=== PATIENT | female | born 1940 | race Caucasian/White ===

== ENCOUNTER 2023-04-01 12:29 | Day surgery (SDC) | payer MEDICARE, MEDICAID, SELFPAY ==
--- NOTE | 2023-04-01 11:57 | ANES.PREOP_ITS ---
General Info Date of Service Date Performed: 04/01/23 Height: 5 ft 2 in Weight: 72.575 kg Body Mass Index (BMI): 29.2 Surgical Procedure: Operation Date: 04/01/23 16:40 Proposed Procedure Side Surgeon p Cataract Extraction with IOL Implant Left Tristan King MD Meds Allergies and Home Medications Allergies Allergy/AdvReac Type Severity Reaction Status Date / Time Yeast Allergy Unknown unknown Unverified 03/30/23 14:30 Phenothiazines Allergy dystonia,lost Unverified 03/31/23 12:30 control of tongue [place] Inhibitors AdvReac Intermediate Cough Unverified 03/30/23 14:30 morphine AdvReac Intermediate Vomiting Unverified 03/30/23 14:30 Home Medication Medication Instructions Recorded albuterol sulfate 90 mcg/actuation 1 puff inhalation QID PRN 03/30/23 aerosol inhaler (Ventolin HFA) allopurinol 100 mg tablet 100 mg PO DIRECTED 03/30/23 bisoprolol 5 1 tab PO DAILY 03/30/23 mg-hydrochlorothiazide 6.25 mg tablet [id number]-briglmbzy-jgro tablet 1 tab PO DAILY 03/30/23 cholecalciferol (vitamin D3) 25 25 mcg PO DAILY 03/30/23 mcg (1,000 unit) tablet (Vitamin D3) cyclosporine 0.05 % eye drops in a 1 drp ophthalmic (eye) BID 03/30/23 dropperette (Restasis) dulaglutide 1.5 mg/0.5 mL 1.5 mg subcut DIRECTED 03/30/23 subcutaneous pen injector (Trulicity) gabapentin 100 mg capsule 100 mg PO TID 03/30/23 ipratropium bromide 42 mcg (0.06 2 spray intranasal QID 03/30/23 %) nasal spray levothyroxine 75 mcg tablet 75 mcg PO DIRECTED 03/30/23 melatonin 3 mg tablet 3 mg PO HS 03/30/23 mirtazapine 15 mg tablet 15 mg PO HS 03/30/23 omega-3 fatty acids 1 cap PO DAILY 03/30/23 risperidone 0.5 mg tablet 0.5 mg PO DIRECTED 03/30/23 simvastatin 40 mg tablet 40 mg PO DAILY 03/30/23 venlafaxine 75 mg capsule,extended 75 mg PO DAILY 03/30/23 release 24 hr vitamin B12 1,000 mcg-folic acid 1 tab sublingual DIRECTED 03/30/23 400 mcg sublingual tablet Current Visit Medications: Current Medications Generic Name Dose Route Start Last Admin Trade Name Freq PRN Reason Stop Dose Admin Acetaminophen 1,000 mg 04/01/23 06:00 Acetaminophen 500 Mg Tab PO 05/01/23 05:59 Q4H PRN PRN Balanced Salt Solution 500 ml 04/01/23 06:00 Balanced Salt Soln.-Plus 500 Ml Bag OP 05/01/23 05:59 DIRECTED [facility] Miscellaneous Medication 0 ml 04/01/23 06:00 Prednisolone 1%, Moxifloxacin 0.5%, Nepafenac 0.1% 5ml Btl OS 05/01/23 05:59 DIRECTED JAYMIE Miscellaneous Medication 0 ml 04/01/23 06:00 Tropicam./Phenyleph. (1/2.5%) 5 Ml Btl OS 05/01/23 05:59 DIRECTED JAYMIE Tetracaine HCl 0 ml 04/01/23 06:00 Tetracaine 0.5% 4 Ml Btl OS 05/01/23 05:59 DIRECTED JAYMIE PFSH Active Problems Active Problems: Problem Status Onset Code Cortical age-related cataract, left eye H25.012 Nuclear age-related cataract, left eye H25.12 Mild persistent asthma without complication J45.30 Nasal polyp J33.9 Chronic ethmoidal sinusitis J32.2 Medical History Medical History (Updated 03/31/23 @ 19:22 by Tristan King MD) Adjustment disorder Allergic rhinitis Asthma Atopic dermatitis Benign essential hypertension Benign neoplasm of meninges Bilateral carpal tunnel syndrome BPPV (benign paroxysmal positional vertigo) Cervical radiculopathy Chest pain pt. 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 She was hospitalized beginning of January 2023...reports of outside voices have quieted although not not gone entirely Recurrent major depression Spondylosis without myelopathy Surgical History Surgical History (Reviewed 03/30/23 @ 14:20 by Saúl Pedersen H/O ovarian cystectomy History of breast biopsy History of carpal tunnel release History of partial colectomy History of repair of rectocele History of sinus surgery History of tonsillectomy and adenoidectomy Hx of dilation and curettage Hx of hysterectomy S/P epidural steroid injection Tobacco Smoking/Tobacco Use Status: Never Alcohol Alcohol Intake: never Substance Use Substance use: Never Substance use type: does not use Vital Signs and Lab Results Vital Signs Most Recent Vital Signs in EMR: Temp Pulse Resp BP Pulse Ox 36.3 C L 69 16 147/59 H 98 04/01/23 12:49 04/01/23 12:49 04/01/23 12:49 04/01/23 12:49 04/01/23 12:49 Lab Results Blood Type / Crossmatch: No Data to Display Complete Blood Count: No Data to Display Complete Metabolic Panel: No Data to Display Liver Function Panel: No Data to Display Coagulation Panel: No Data to Display Cardiac Panel: No Data to Display Arterial Blood Gas: No Data to Display Venous Blood Gas: No Data to Display Pancreas Panel: No Data to Display Thyroid Panel: No Data to Display Infectious Disease: No Data to Display Blood Cultures: No Data to Display Toxicology Panel: No Data to Display Anesthesia Assessment and Plan Anesthesia History Personal History: No History of Anesthesia Complications Family History: No Family History of Anesthesia Complications Exercise Tolerance Exercise Tolerance: Metabolic Equivalents>4 Cardiac & Pulmonary Exam Cardiac Exam: Normal S1/S2 Heart Sounds Pulmonary Exam: Clear Bilateral Breath Sounds Implantable Cardiac Device Does patient have a Pacemaker or an ICD?: No Airway Exam Known Difficult Airway: No Mallampati Class: 4 Mouth Opening: Narrow (< 3cm) Thyromental Distance: Greater than 3 cm Neck Range of Motion: Limited ROM Neck Circumference: Normal Teeth Condition: Normal Dentition ASA Classification ASA Score: ASA 2 Emergency Case?: No NPO Status NPO Status: NPO Clears >2 hours, Solids >8 hours Anesthesia Plan Resuscitation Status: Full Code Anesthesia Technique: MAC Anesthesia Airway Planned: Natural Airway Monitors Used: Standard Monitors Preoperative Comments:: 82 yo female for cataract removal. would like MKO. Sig PMHx: vertigo, depression/fibromyalgia/anxiety, DM (dulaglutide), asthma,
[2023-04-01 12:49] VITALS: BP 147/59; PULSE 69; RESP 16; TEMP 36.3; O2SAT 98
[2023-04-01] MEDS: Tropicam./Phenyleph. (1/2.5%) 5 ML BTL OS ×3 (12:57→13:13)
[2023-04-01 12:58] VITALS: BMI 29.2
[2023-04-01] MEDS: Tetracaine 0.5% 4 ML BTL OS (13:49)
[2023-04-01] MEDS: Balanced Salt Soln.-PLUS 500 ML BAG OP (13:54)
[2023-04-01] MEDS: Trypan Blue 0.06% 0.5 ML SYR (14:00)
[2023-04-01] MEDS: Duovisc Viscoelastic System EACH 1 EACH (14:00)
[2023-04-01] MEDS: Lidocaine 1% Pres-Free 5 ML VIAL (14:01)
[2023-04-01] MEDS: Phenylephrine/Lidocaine (15/10) MG/ML 1 ML VIAL (14:01)
[2023-04-01] MEDS: Povidone-Iodine Ophth 30 ML BTL (14:01)
[2023-04-01 14:21] VITALS: BP 129/50; PULSE 73; RESP 16; TEMP 36.3; O2SAT 97
--- NOTE | 2023-04-01 14:23 | PDOC.DSDIS_ITS ---
Date of service: 04/01/23 Time of Service: 14:24 Discharge Plan Disposition Patient Disposition: Home Discharge Details Attending Provider: Tristan King Primary Care Provider: Grisel Lazo Home Meds and New Rx's Prescriptions: No Action venlafaxine 75 mg capsule,extended release 24hr 75 mg PO DAILY Patient Comments: TAKE ONE CAPSULE BY MOUTH EVERY DAY bisoprolol-hydrochlorothiazide 5-6.25 mg tablet 1 tab PO DAILY Patient Comments: TAKE ONE TABLET BY MOUTH EVERY DAY melatonin 3 mg Tablet 3 mg PO HS allopurinol 100 mg tablet 100 mg PO DIRECTED Patient Comments: TAKE ONE TABLET BY MOUTH EVERY DAY IN THE MORNING simvastatin 40 mg tablet 40 mg PO DAILY Patient Comments: TAKE ONE TABLET BY MOUTH EVERY NIGHT AT BEDTIME levothyroxine 75 mcg tablet 75 mcg PO DIRECTED sprfxzf-soqqfasqh-wrzy Tablet 1 tab PO DAILY mirtazapine 15 mg tablet 15 mg PO HS Patient Comments: TAKE ONE TABLET BY MOUTH AT BEDTIME gabapentin 100 mg capsule 100 mg PO TID Patient Comments: TAKE ONE CAPSULE BY MOUTH THREE TIMES A DAY albuterol sulfate [Ventolin HFA] 90 mcg/actuation Hfa Aerosol Inhaler 1 puff INHALATION QID PRN ipratropium bromide 42 mcg (0.06 %) spray,non-aerosol 2 spray INTRANASAL QID Patient Comments: SPRAY TWO SPRAYS IN ONE NOSTRIL FOUR TIMES A DAY risperidone 0.5 mg tablet 0.5 mg PO DIRECTED cyclosporine [Restasis] 0.05 % Dropperette 1 drp ophthalmic (eye) BID [place] 3 Capsule 1 cap PO DAILY cholecalciferol (vitamin D3) [Vitamin D3] 25 mcg (1,000 unit) Tablet 25 mcg PO DAILY vitamin F96-yqkom acid 1,000-400 mcg Tablet, Sublingual 1 tab SUBLINGUAL DIRECTED Trulicity 1.5 mg/0.5 mL pen injector 1.5 mg SUBCUT DIRECTED Patient Comments: ADMINISTER 1 & 1/2 MG INTO THE SKIN EVERY WEEK Discharge Instructions Stand Alone Forms: Post-op Topical Cataract, Press Ganey (DSU) Discharge Orders Discharge Orders: Discharge Order (Routine); Ordered 04/01/23 Ordered By: Tristan King DS: Diagnosis Discharge Diagnosis (1) Cortical age-related cataract, left eye: Status: Resolved (2) Nuclear age-related cataract, left eye: Status: Resolved
--- NOTE | 2023-04-01 14:24 | ROE_ITS ---
Date of service: 04/01/23 Time of Service: 14:24 Operative Note Operative Note DATE OF PROCEDURE: 04/01/23 PRE-OP DIAGNOSIS: Nuclear/cortical cataract, left eye POST-OP DIAGNOSIS: same PROCEDURE: Cataract extraction using phacoemulsification with intraocular lens implant, left eye SURGEON: Tristan King ANESTHESIA TYPE: Local By Surgeon and MAC Refer to Anesthesia Record PATHOLOGY: none sent COMPLICATIONS: None Patient was transported to: same day Patient's condition: stable Implants: Addy and Addy Tecnis Eyhance DIB00 Indications: Progressive decreased vision due to cataract, left eye Procedure Description: CATARACT SURGERY OPERATIVE REPORT PREOPERATIVE DIAGNOSIS: 1. Nuclear/cortical cataract, left eye POSTOPERATIVE DIAGNOSIS: Same OPERATION: 1. Cataract extraction using phacoemulsification with posterior chamber intraocular lens implant, left eye. IOL: IOL Weigher Operator/Model: Addy & Addy Tecnis Eyhance DIB00 IOL Power: + 21.0 diopters IOL Serial Number: [id number] Optic Diameter: 6.0 mm Haptic/Overall Diameter: 13.0 mm PHACO INFO: LukeJacked Vision System with OZil and Active Fluidics Cumulative Dispersed Energy (CDE): 8.18 seconds SURGEON: Tristan King MD, MACHO ANESTHESIA: Monitored A [facility] (MAC), with local sub-tenon's anesthetic infiltration COMPLICATIONS: None SPECIMENS: None INDICATIONS FOR PROCEDURE: The patient is an 82-year-old lady with history of diminished visual acuity in her left eye secondary to the development of significant nuclear/cortical cataract. She is significantly symptomatic that she desires cataract surgery and attempt to improve and maximize her vision. See office notes for detailed information. PROCEDURE: The correct surgical eye was identified and marked as the left eye and the pupil was dilated in the preoperative area using mydriatics and cycloplegics. The dilated pupil size was 5.0 mm mm. Oral sedation was administered in the form of one half of an Imprimis MKO Melt (midazolam 3mg/ketamine 25mg/ondansetron 2mg). The patient was brought to the operating room where cardiopulmonary monitoring was instituted and surgical time-out was performed, confirming the correct operative eye and IOL power. Topical anesthesia was administered and ophthalmic povidone-iodine 5% was instilled into the conjunctival fornices. The clarisa-ocular area was prepped with Betadine 10% solution and draped in the usual sterile fashion for intraocular surgery, including an aperture drape. A Tegaderm transparent film dressing was cut in half and used to cover the lashes and lid margins. Care was taken to s equester the lashes and lid margins under the Tegaderm dressing. A lid speculum was placed between the lids of the operative eye and the Luke LuxOR Revalia operating microscope was maneuvered into position. Bettina scissors were then used to make a conjunctival buttonhole approximately 6mm posterior to the limbus in the inferonasal quadrant. Blunt dissection was carried out to expose bare sclera, and a blunt-tipped sub-tenon?s anesthesia cannula was introduced and passed posteriorly along the globe where non- preserved plain lidocaine was injected into posterior sub-Tenon?s space. A side port knife was used to make a paracentesis port. VisionBlue was injected into the anterior chamber and allowed to sit for 20 seconds. Intraocular phenylephrine/lidocaine was injected into the anterior chamber.. The anterior chamber was filled with viscoelastic. A moderate amount of pseudoexfoliation material was visible on the anterior lens capsule after additional dilation with viscoelastic. Capsule is noted to be quite thin. Only mild zonular laxity was noted. A keratome knife was used to construct a 2- plane near-clear corneal tunnel extending 2.0mm into clear cornea. A flap was raised on the anterior capsule and capsulorhexis forceps were used to complete a continuous curvilinear capsulorhexis of 5.0 mm. Balanced salt solution was then used to perform cortical cleaving hydrod issection and nuclear hydrodelineation until the lens could be freely rotated within the capsular bag. The lens nucleus was then disassembled and removed within the capsular bag and iris plane using phacoemulsification. Residual cortical material was removed using the irrigation/aspiration handpiece. The posterior capsule was carefully polished to remove as much residual lens epithelial cells as safely possible. The capsular bag was then inflated and the anterior chamber deepened with viscoelastic. The lens implant described above was inserted into the capsular bag using the Addy and Addy Simplicity pre- loaded injector. A Kuglen hook was used to dial the IOL into position. Residual viscoelastic was then removed first from posterior to the IOL, then from the anterior chamber using the I/A handpiece. The lens implant was noted to center nicely within the capsular bag. The incisions were stromally hydrated, and the anterior chamber was reformed using BSS. Then 0.5cc of moxifloxacin 1.0mg/ml were injected into the capsular bag and anterior chamber. The incisions were checked with a Weck spear and found to be secure. Several drops of ophthalmic povidone-iodine 5% were then applied to the eye followed by two drops of Imprimis combination prednisolone/moxifloxacin/nepafenac solution. The drapes were removed and a clear plastic protective eye shield was placed over the eye. The patient was then returned to Same Day Surgery in stable condition.
--- NOTE | 2023-04-01 14:46 | W.ANESPOSTOP ---
Postoperative Evaluation Date, Time and Location Date Performed: 04/01/23 Time Performed: 14:46 Patient Location: Day Surgery Unit Vital Signs Most Recent Imported Vital Signs: Most Recent Vital Signs Temp Pulse Resp BP Pulse Ox 36.3 C L 73 16 129/50 L 97 04/01/23 14:21 04/01/23 14:21 04/01/23 14:21 04/01/23 14:21 04/01/23 14:21 Pain Score Most Recent Pain Score: Most Recent Pain Score Pain Level 0 04/01/23 14:21 Assessment Mental Status: Awake (Alert & Oriented to Patient Baseline) Airway and Respiratory Function: Patent airway with normal (patient baseline) respiratory exam Cardiovascular Function: Hemodynamically Stable Hydration Status: Adequately Hydrated Nausea & Vomiting: No Nausea or Vomiting Pain: Pt. Denies Any Pain Peripheral Nerve Block: Other (Local by Dr. King)
[2023-04-01 14:47] VITALS: BP 117/72; PULSE 77; RESP 16; TEMP 36.8; O2SAT 93
== END 2023-04-01 15:08 | disposition home or self-care (01) ==
PROVIDERS: PCP Internal Medicine; Visit Provider Ophthalmology
PROC: (CPT 66984; principal; 2023-04-01 16:30)
DX: H25.012 Cortical age-related cataract, left eye (principal); H25.12 Age-related nuclear cataract, left eye
CPT/HCPCS: 66984; V2632

== ENCOUNTER 2023-04-15 12:28 | Day surgery (SDC) | payer MEDICARE, MEDICAID, SELFPAY ==
[2023-04-15] MEDS: Tropicam./Phenyleph. (1/2.5%) 5 ML BTL OD (12:48)
[2023-04-15 12:56] VITALS: BP 140/73; PULSE 74; RESP 16; TEMP 36.4; O2SAT 99
--- NOTE | 2023-04-15 13:04 | ANES.PREOP_ITS ---
General Info Height: 5 ft 2 in Weight: 72.9 kg Body Mass Index (BMI): 29.4 Surgical Procedure: Operation Date: 04/15/23 16:25 Proposed Procedure Side Surgeon p Cataract Extraction with IOL Implant Right Tristan King MD Meds Allergies and Home Medications Allergies Allergy/AdvReac Type Severity Reaction Status Date / Time Yeast Allergy Unknown unknown Unverified 04/15/23 13:00 Phenothiazines Allergy dystonia,lost Unverified 04/15/23 13:00 control of tongue [place] Inhibitors AdvReac Intermediate Cough Unverified 04/15/23 13:00 morphine AdvReac Intermediate Vomiting Unverified 04/15/23 13:00 Home Medication Medication Instructions Recorded albuterol sulfate 90 mcg/actuation 1 puff inhalation QID PRN 03/30/23 aerosol inhaler (Ventolin HFA) allopurinol 100 mg tablet 100 mg PO DIRECTED 03/30/23 bisoprolol 5 1 tab PO DAILY 03/30/23 mg-hydrochlorothiazide 6.25 mg tablet brtpuas-yoilnwynr-ppqd tablet 1 tab PO DAILY 03/30/23 cholecalciferol (vitamin D3) 25 25 mcg PO DAILY 03/30/23 mcg (1,000 unit) tablet (Vitamin D3) cyclosporine 0.05 % eye drops in a 1 drp ophthalmic (eye) BID 03/30/23 dropperette (Restasis) dulaglutide 1.5 mg/0.5 mL 1.5 mg subcut DIRECTED 03/30/23 subcutaneous pen injector (Trulicity) gabapentin 100 mg capsule 100 mg PO TID 03/30/23 ipratropium bromide 42 mcg (0.06 2 spray intranasal QID 03/30/23 %) nasal spray levothyroxine 75 mcg tablet 75 mcg PO DIRECTED 03/30/23 melatonin 3 mg tablet 3 mg PO HS 03/30/23 mirtazapine 15 mg tablet 15 mg PO HS 03/30/23 omega-3 fatty acids 1 cap PO DAILY 03/30/23 risperidone 0.5 mg tablet 0.5 mg PO DIRECTED 03/30/23 simvastatin 40 mg tablet 40 mg PO DAILY 03/30/23 venlafaxine 75 mg capsule,extended 75 mg PO DAILY 03/30/23 release 24 hr vitamin B12 1,000 mcg-folic acid 1 tab sublingual DIRECTED 03/30/23 400 mcg sublingual tablet Current Visit Medications: Current Medications Generic Name Dose Route Start Last Admin Trade Name Freq PRN Reason Stop Dose Admin Acetaminophen 1,000 mg 04/15/23 06:00 Acetaminophen 500 Mg Tab PO 05/15/23 05:59 Q4H PRN PRN Balanced Salt Solution 500 ml 04/15/23 06:00 Balanced Salt Soln.-Plus 500 Ml Bag OP 05/15/23 05:59 DIRECTED [facility]E Miscellaneous Medication 0 ml 04/15/23 06:00 Prednisolone 1%, Moxifloxacin 0.5%, Nepafenac 0.1% 5ml Btl OD 05/15/23 05:59 DIRECTED [facility] Miscellaneous Medication 0 ml 04/15/23 06:00 04/15/23 12:48 Tropicam./Phenyleph. (1/2.5%) 5 Ml Btl OD 05/15/23 05:59 1 drp DIRECTED JAYMIE Administration Tetracaine HCl 0 ml 04/15/23 06:00 Tetracaine 0.5% 4 Ml Btl OD 05/15/23 05:59 DIRECTED [facility] PFSH Active Problems Active Problems: Problem Status Onset Code Cortical age-related cataract, right eye H25.011 Nuclear age-related cataract, right eye H25.11 Cortical age-related cataract, left eye H25.012 Nuclear age-related cataract, left eye H25.12 Mild persistent asthma without complication J45.30 Nasal polyp J33.9 Chronic ethmoidal sinusitis J32.2 Medical History Medical History Adjustment disorder Allergic rhinitis Asthma Atopic dermatitis Benign essential hypertension Benign neoplasm of meninges Bilateral carpal tunnel syndrome BPPV (benign paroxysmal positional vertigo) Cervical radiculopathy Chest pain pt. 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 She was hospi talized beginning of January 2023...reports of outside voices have quieted although not not gone entirely Recurrent major depression Spondylosis without myelopathy Medical History Comments:: Per pt. daughter stated last Cat surgery here her daughter stated she felt a twinge of pain during it wanted to see mf anything different could be done to address that. Surgical History Surgical History H/O ovarian cystectomy History of breast biopsy History of carpal tunnel release History of partial colectomy History of repair of rectocele History of sinus surgery History of tonsillectomy and adenoidectomy Hx of dilation and curettage Hx of hysterectomy S/P epidural steroid injection Tobacco Smoking/Tobacco Use Status: Never Alcohol Alcohol Intake: never Substance Use Substance use: Never Substance use type: does not use Vital Signs and Lab Results Vital Signs Most Recent Vital Signs in EMR: Most Recent Vital Signs Temp Pulse Resp BP Pulse Ox 36.4 C L 74 16 140/73 99 04/15/23 12:56 04/15/23 12:56 04/15/23 12:56 04/15/23 12:56 04/15/23 12:56 Point of Care Results Point of Care Results: Finger Stick Blood Glucose 127 04/15/23 12:38 Lab Results Blood Type / Crossmatch: No Data to Display Complete Blood Count: No Data to Display Complete Metabolic Panel: No Data to Display Liver Function Panel: No Data to Display Coagulation Panel: No Data to Display Cardiac Panel: No Data to Display Arterial Blood Gas: No Data to Display Venous Blood Gas: No Data to Display Pancreas Panel: No Data to Display Thyroid Panel: No Data to Display Infectious Disease: 2 No Data to Display Blood Cultures: No Data to Display Toxicology Panel: No Data to Display Anesthesia Assessment and Plan Anesthesia History Personal History: No History of Anesthesia Complications Family History: No Family History of Anesthesia Complications Exercise Tolerance Exercise Tolerance: Metabolic Equivalents>4 Implantable Cardiac Device Does patient have a Pacemaker or an ICD?: No Airway Exam Known Difficult Airway: No Mallampati Class: 4 Mouth Opening: Narrow (< 3cm) Thyromental Distance: Greater than 3 cm Neck Range of Motion: Limited ROM Neck Circumference: Normal Teeth Condition: Normal Dentition Preoperative Comments:: 82 yo female for cataract removal. would like MKO. Sig PMHx: vertigo, depression/fibromyalgia/anxiety, DM (dulaglutide), asthma,
[2023-04-15] MEDS: Duovisc Viscoelastic System EACH 1 EACH (13:33)
[2023-04-15] MEDS: Balanced Salt Soln.-PLUS 500 ML BAG OP (13:34)
[2023-04-15] MEDS: Tetracaine 0.5% 4 ML BTL OD (13:35)
[2023-04-15] MEDS: Phenylephrine/Lidocaine (15/10) MG/ML 1 ML VIAL (13:36)
[2023-04-15] MEDS: Povidone-Iodine Ophth 30 ML BTL (13:36)
[2023-04-15] MEDS: Trypan Blue 0.06% 0.5 ML SYR (13:37)
--- NOTE | 2023-04-15 13:44 | ANES.PREOP_ITS ---
General Info Date of Service Date Performed: 04/15/23 Height: 5 ft 2 in Weight: 72.9 kg Body Mass Index (BMI): 29.4 Surgical Procedure: Operation Date: 04/15/23 16:25 Proposed Procedure Side Surgeon p Cataract Extraction with IOL Implant Right Tristan King MD Meds Allergies and Home Medications Allergies Allergy/AdvReac Type Severity Reaction Status Date / Time Yeast Allergy Unknown unknown Unverified 04/15/23 13:00 Phenothiazines Allergy dystonia,lost Unverified 04/15/23 13:00 control of tongue [place] Inhibitors AdvReac Intermediate Cough Unverified 04/15/23 13:00 morphine AdvReac Intermediate Vomiting Unverified 04/15/23 13:00 Home Medication Medication Instructions Recorded albuterol sulfate 90 mcg/actuation 1 puff inhalation QID PRN 03/30/23 aerosol inhaler (Ventolin HFA) allopurinol 100 mg tablet 100 mg PO DIRECTED 03/30/23 bisoprolol 5 1 tab PO DAILY 03/30/23 mg-hydrochlorothiazide 6.25 mg tablet [id number]-[id number]-kget tablet 1 tab PO DAILY 03/30/23 cholecalciferol (vitamin D3) 25 25 mcg PO DAILY 03/30/23 mcg (1,000 unit) tablet (Vitamin D3) cyclosporine 0.05 % eye drops in a 1 drp ophthalmic (eye) BID 03/30/23 dropperette (Restasis) dulaglutide 1.5 mg/0.5 mL 1.5 mg subcut DIRECTED 03/30/23 subcutaneous pen injector (Trulicity) gabapentin 100 mg capsule 100 mg PO TID 03/30/23 ipratropium bromide 42 mcg (0.06 2 spray intranasal QID 03/30/23 %) nasal spray levothyroxine 75 mcg tablet 75 mcg PO DIRECTED 03/30/23 melatonin 3 mg tablet 3 mg PO HS 03/30/23 mirtazapine 15 mg tablet 15 mg PO HS 03/30/23 omega-3 fatty acids 1 cap PO DAILY 03/30/23 risperidone 0.5 mg tablet 0.5 mg PO DIRECTED 03/30/23 simvastatin 40 mg tablet 40 mg PO DAILY 03/30/23 venlafaxine 75 mg capsule,extended 75 mg PO DAILY 03/30/23 release 24 hr vitamin B12 1,000 mcg-folic acid 1 tab sublingual DIRECTED 03/30/23 400 mcg sublingual tablet Current Visit Medications: Current Medications Generic Name Dose Route Start Last Admin Trade Name Freq PRN Reason Stop Dose Admin Acetaminophen 1,000 mg 04/15/23 06:00 Acetaminophen 500 Mg Tab PO 05/15/23 05:59 Q4H PRN PRN Balanced Salt Solution 500 ml 04/15/23 06:00 04/15/23 13:34 Balanced Salt Soln.-Plus 500 Ml Bag OP 05/15/23 05:59 500 ml DIRECTED JAYMIE Administration Miscellaneous Medication 0 ml 04/15/23 06:00 04/15/23 13:34 Prednisolone 1%, Moxifloxacin 0.5%, Nepafenac 0.1% 5ml Btl OD 05/15/23 05:59 2 drp DIRECTED JAYMIE Administration Miscellaneous Medication 0 ml 04/15/23 06:00 04/15/23 12:48 Tropicam./Phenyleph. (1/2.5%) 5 Ml Btl OD 05/15/23 05:59 1 drp DIRECTED JAYMIE Administration Tetracaine HCl 0 ml 04/15/23 06:00 04/15/23 13:35 Tetracaine 0.5% 4 Ml Btl OD 05/15/23 05:59 4 drp DIRECTED JAYMIE Administration PFSH Active Problems Active Problems: Problem Status Onset Code Cortical age-related cataract, right eye H25.011 Nuclear age-related cataract, right eye H25.11 Cortical age-related cataract, left eye H25.012 Nuclear age-related cataract, left eye H25.12 Mild persistent asthma without complication J45.30 Nasal polyp J33.9 Chronic ethmoidal sinusitis J32.2 Medical History Medical History Adjustment disorder Allergic rhinitis Asthma Atopic dermatitis Benign essential hypertension Benign neoplasm of meninges Bilateral carpal tunnel syndrome BPPV (benign paroxysmal positional vertigo) Cervical radiculopathy Chest pain pt. 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 She was hospit alized beginning of January 2023...reports of outside voices have quieted although not not gone entirely Recurrent major depression Spondylosis without myelopathy Medical History Comments:: Per pt. daughter stated last Cat surgery here her daughter stated she felt a twinge of pain during it wanted to see mf anything different could be done to address that. Surgical History Surgical History H/O ovarian cystectomy History of breast biopsy History of carpal tunnel release History of partial colectomy History of repair of rectocele History of sinus surgery History of tonsillectomy and adenoidectomy Hx of dilation and curettage Hx of hysterectomy S/P epidural steroid injection Tobacco Smoking/Tobacco Use Status: Never Alcohol Alcohol Intake: never Substance Use Substance use: Never Substance use type: does not use Vital Signs and Lab Results Vital Signs Most Recent Vital Signs in EMR: Most Recent Vital Signs Temp Pulse Resp BP Pulse Ox 36.4 C L 74 16 140/73 99 04/15/23 12:56 04/15/23 12:56 04/15/23 12:56 04/15/23 12:56 04/15/23 12:56 Point of Care Results Point of Care Results: Finger Stick Blood Glucose 127 04/15/23 12:38 Lab Results Blood Type / Crossmatch: No Data to Display Complete Blood Count: No Data to Display Complete Metabolic Panel: No Data to Display Liver Function Panel: No Data to Display Coagulation Panel: No Data to Display Cardiac Panel: No Data to Display Arterial Blood Gas: No Data to Display Venous Blood Gas: No Data to Display Pancreas Panel: No Data to Display Thyroid Panel: No Data to Display Infectious Disease: No Data to Display Blood Cultures: No Data to Display Toxicology Panel: No Data to Display Anesthesia Assessment and Plan Anesthesia History Personal History: No History of Anesthesia Complications Family History: No Family History of Anesthesia Complications Exercise Tolerance Exercise Tolerance: Metabolic Equivalents>4 Cardiac & Pulmonary Exam Cardiac Exam: Normal S1/S2 Heart Sounds Pulmonary Exam: Clear Bilateral Breath Sounds Implantable Cardiac Device Does patient have a Pacemaker or an ICD?: No Airway Exam Known Difficult Airway: No Mallampati Class: 4 Mouth Opening: Narrow (< 3cm) Thyromental Distance: Greater than 3 cm Neck Range of Motion: Limited ROM Neck Circumference: Normal Teeth Condition: Normal Dentition ASA Classification ASA Score: ASA 2 Emergency Case?: No NPO Status NPO Status: NPO Clears >2 hours, Solids >8 hours Anesthesia Plan Resuscitation Status: Full Code Anesthesia Technique: MAC Anesthesia Airway Planned: Natural Airway Monitors Used: Standard Monitors Preoperative Comments:: 82 yo female for cataract removal. previous with 0.5 MKO, discussed and will do no MKO today due to no one with her at home tonight. states she didn't even really notice an effect with the 0.5 tab. no changes in health history. Sig PMHx: vertigo, depression/fibromyalgia/anxiety, DM (dulaglutide), asthma,
[2023-04-15 13:45] VITALS: BMI 29.4
[2023-04-15 13:55] VITALS: BP 142/61; PULSE 71; RESP 16; TEMP 36.4; O2SAT 96
--- NOTE | 2023-04-15 13:56 | PDOC.DSDIS_ITS ---
Date of service: 04/15/23 Time of Service: 13:56 Discharge Plan Disposition Patient Disposition: Home Discharge Details Attending Provider: Tristan King Primary Care Provider: Grisel Lazo Home Meds and New Rx's Prescriptions: No Action venlafaxine 75 mg capsule,extended release 24hr 75 mg PO DAILY Patient Comments: TAKE ONE CAPSULE BY MOUTH EVERY DAY bisoprolol-hydrochlorothiazide 5-6.25 mg tablet 1 tab PO DAILY Patient Comments: TAKE ONE TABLET BY MOUTH EVERY DAY melatonin 3 mg Tablet 3 mg PO HS allopurinol 100 mg tablet 100 mg PO DIRECTED Patient Comments: TAKE ONE TABLET BY MOUTH EVERY DAY IN THE MORNING simvastatin 40 mg tablet 40 mg PO DAILY Patient Comments: TAKE ONE TABLET BY MOUTH EVERY NIGHT AT BEDTIME levothyroxine 75 mcg tablet 75 mcg PO DIRECTED vrgxfrf-iqvzygppc-kbnp Tablet 1 tab PO DAILY mirtazapine 15 mg tablet 15 mg PO HS Patient Comments: TAKE ONE TABLET BY MOUTH AT BEDTIME gabapentin 100 mg capsule 100 mg PO TID Patient Comments: TAKE ONE CAPSULE BY MOUTH THREE TIMES A DAY albuterol sulfate [Ventolin HFA] 90 mcg/actuation Hfa Aerosol Inhaler 1 puff INHALATION QID PRN ipratropium bromide 42 mcg (0.06 %) spray,non-aerosol 2 spray INTRANASAL QID Patient Comments: SPRAY TWO SPRAYS IN ONE NOSTRIL FOUR TIMES A DAY risperidone 0.5 mg tablet 0.5 mg PO DIRECTED cyclosporine [Restasis] 0.05 % Dropperette 1 drp ophthalmic (eye) BID [place] 3 Capsule 1 cap PO DAILY cholecalciferol (vitamin D3) [Vitamin D3] 25 mcg (1,000 unit) Tablet 25 mcg PO DAILY vitamin K34-bmfgg acid 1,000-400 mcg Tablet, Sublingual 1 tab SUBLINGUAL DIRECTED Trulicity 1.5 mg/0.5 mL pen injector 1.5 mg SUBCUT DIRECTED Patient Comments: ADMINISTER 1 & 1/2 MG INTO THE SKIN EVERY WEEK Discharge Instructions Stand Alone Forms: Post-op Topical Cataract, Press Ganey (DSU) Discharge Orders Discharge Orders: Discharge Order (Routine); Ordered 04/15/23 Ordered By: Tristan King DS: Diagnosis Discharge Diagnosis (1) Cortical age-related cataract, right eye: Status: Resolved (2) Nuclear age-related cataract, right eye: Status: Resolved
--- NOTE | 2023-04-15 13:57 | ROE_ITS ---
Date of service: 04/15/23 Time of Service: 13:57 Operative Note Operative Note DATE OF PROCEDURE: 04/15/23 PRE-OP DIAGNOSIS: Nuclear/cortical cataract, right eye POST-OP DIAGNOSIS: same PROCEDURE: Cataract extraction using phacoemulsification with intraocular lens implant, right eye SURGEON: Tristan King ANESTHESIA TYPE: Local By Surgeon and MAC Refer to Anesthesia Record ESTIMATED BLOOD LOSS: 0 PATHOLOGY: none sent COMPLICATIONS: None Patient was transported to: same day Patient's condition: stable Implants: [employer] Addy Tecnis Eyhance [id number] Indications: Progressive visual loss due to cataract, right eye Procedure Description: CATARACT SURGERY OPERATIVE REPORT PREOPERATIVE DIAGNOSIS: 1. Nuclear/cortical cataract, right eye POSTOPERATIVE DIAGNOSIS: Same OPERATION: 1. Cataract extraction using phacoemulsification with posterior chamber intraocular lens implant, right eye. IOL: IOL Dye Range Tender/Model: Addy [employer] Addy Tecnis Eyhance DIB00 IOL Power: + 21.0 diopters IOL Serial Number: [id number] Optic Diameter: 6.0mm Haptic/Overall Diameter: 13.0mm PHACO INFO: [employer]urion Vision System with OZil and Active Fluidics Cumulative Dispersed Energy (CDE): 7.76 seconds SURGEON: Tristan King MD, MACHO ANESTHESIA: Monitored Anesthesia Care (MAC), with local sub-tenon's anesthetic infiltration COMPLICATIONS: None SPECIMENS: None INDICATIONS FOR PROCEDURE: The patient is an 82-year-old lady with history of diminished visual acuity in her right eye secondary to the development of nuclear/cortical cataract. She has already undergone cataract surgery in the left eye and is doing well postoperatively. She now presents for cataract surgery in the right eye. See office notes for detailed information. PROCEDURE: The correct surgical eye was identified and marked as the right eye and the pupil was dilated in the preoperative area using mydriatics and cycloplegics. The dilated pupil size was 5.0 mm. The patient elected to proceed without oral sedation. The patient was brought to the operating room where cardiopulmonary monitoring was instituted and surgical time-out was performed, confirming the correct operative eye and IOL power. Topical anesthesia was administered and ophthalmic povidone-iodine 5% was instilled into the conjunctival fornices. The clarisa-ocular area was prepped with Betadine 10% solution and draped in the usual sterile fashion for intraocular surgery, including an aperture drape. A Tegaderm transparent film dressing was cut in half and used to cover the lashes and lid margins. Care was taken to sequester the lashes and lid margins under the Tegaderm dressing. A lid speculum was placed between the lids of the operative eye and the Luke [employer] Revalia operating microscope was maneuvered into position. Bettina scissors were then used to make a conjunctival buttonhole approximately 6mm posterior to the limbus in the inferonasal quadrant. Blunt dissection was carried out to expose bare sclera, and a blunt-tipped sub-tenon?s anesthesia cannula was introduced and passed posteriorly along the globe where non- preserved plain lidocaine was injected into posterior sub-Tenon?s space. A sideport knife was used to make a paracentesis port. VisionBlue was injected into the anterior chamber and allowed to sit for 20 seconds. Intraocular phenylephrine/lidocaine was injected into the anterior chamber. The anterior chamber was filled with viscoelastic. A keratome knife was used to construct a 2-plane clear corneal tunnel extending 2.0mm into clear cornea. A flap was raised on the anterior capsule and capsulorhexis forceps were used to complete a continuous curvilinear capsulorhexis of 5.0 mm. Balanced salt solution was then used to perform cortical cleaving hydrodissection and nuclear hydrodelineation until the lens could be freely r otated within the capsular bag. The lens nucleus was then disassembled and removed within the capsular bag and iris plane using phacoemulsification. Residual cortical material was removed using the I/A handpiece. The posterior capsule was carefully polished to remove as much residual lens epithelial cells as safely possible. The capsular bag was then inflated and the anterior chamber deepened with cohesive viscoelastic. The lens implant described above was inserted into the capsular bag using the [employer] Simplicity pre- loaded injector. A Kuglen hook was used to dial the IOL into position. Residual viscoelastic was then removed first from posterior to the IOL, then from the anterior chamber using the I/A handpiece. The lens implant was noted to center nicely within the capsular bag. The incisions were stromally hydrated, and the anterior chamber was reformed using BSS. Then 0.5cc of moxifloxacin 1.0mg/ml were injected into the capsular bag and anterior chamber. The incisions were checked with a Weck spear and found to be secure. Several drops of ophthalmic povidone-iodine 5% were then applied to the eye followed by two drops of Imprimis combination prednisolone/moxifloxacin/nepafenac solution. The drapes were removed and a clear plastic protective eye shield was placed over the eye. The patient was then returned to [facility] Day Surgery in stable condition.
--- NOTE | 2023-04-17 03:36 | W.ANESPOSTOP ---
Postoperative Evaluation Date, Time and Location Date Performed: 04/15/23 Time Performed: 14:00 Patient Location: Day Surgery Unit Vital Signs Most Recent Imported Vital Signs: Most Recent Vital Signs Temp Pulse Resp BP Pulse Ox 36.4 C L 71 16 142/61 H 96 04/15/23 13:55 04/15/23 13:55 04/15/23 13:55 04/15/23 13:55 04/15/23 13:55 Pain Score Most Recent Pain Score: Most Recent Pain Score Pain Level 0 04/15/23 13:55 Assessment Mental Status: Awake (Alert & Oriented to Patient Baseline) Airway and Respiratory Function: Patent airway with normal (patient baseline) respiratory exam Cardiovascular Function: Hemodynamically Stable Hydration Status: Adequately Hydrated Nausea & Vomiting: No Nausea or Vomiting Pain: Pt. Denies Any Pain Peripheral Nerve Block: Patient did not receive a nerve block
== END 2023-04-15 14:15 | disposition home or self-care (01) ==
LOC: SUR 12:28
PROVIDERS: PCP Internal Medicine; Visit Provider Ophthalmology
PROC: (CPT 66984; principal; 2023-04-15 16:15)
DX: H25.011 Cortical age-related cataract, right eye (principal); H25.11 Age-related nuclear cataract, right eye; Z98.42 Cataract extraction status, left eye
CPT/HCPCS: 66984; V2632